=== PATIENT | male | born 1960 | race Caucasian/White ===

== ENCOUNTER → 2016-04-06 | Outpatient (CLI) | payer OTHER ==
--- NOTE | 2016-04-06 14:55 | DIAGNOSTIC IMAGING REPORT ---
TWO VIEW CHEST CLINICAL HISTORY: Benign prostatic hyperplasia. FINDINGS: PA and lateral chest radiographs are obtained. No prior studies are available for comparison at the time of dictation. The heart is mildly enlarged and there is atherosclerotic calcification of the thoracic aorta. The pulmonary vasculature is noncongested. Enlargement of the central pulmonary arteries suggests pulmonary artery hypertension. Findings suggest emphysema. Chronic appearing interstitial thickening is noted. 11 mm nodular density projects over the left mid chest. There is no airspace consolidation or pleural effusion. A calcified granuloma seen in the left lower lobe. There is no pneumothorax. The skeletal structures are osteopenic. There are healed bilateral rib fractures. Degenerative change is noted throughout the thoracic spine. IMPRESSION: 1. Cardiomegaly and suspect emphysema. There is no acute cardiopulmonary abnormality. 2. An 11 mm nodular density projects over the left mid chest. This is indeterminant, and a chest CT scan is recommended for further assessment and to exclude underlying pulmonary lesion. Electronically signed by: Serafin Corea M.D. 04/06/2016 2:54 PM Dictated Date/Time: 04/06/2016 2:51 PM
[2016-04-06 15:47] LABS: BASO % 0.4 %; BASO ABS # 0.04 K/uL (0-0.2); COMPLETE YES; EOS % 1.4 %; HEMATOCRIT 50.8 % (42-52); IG% 0.2 %; LYMPH % 25.9 %; LYMPH ABS # 2.39 K/uL (1.2-3.4); MEAN CELL VOLUME 91.5 fL (80-100); MEAN CORPUSCULAR HEMOGLOBIN 32.3 pg (25-34); MEAN CORPUSCULAR HGB CONC 35.2 g/dl (32-36); MONO % 10.6 %; NEUT % 61.5 %; PLATELET COUNT 189 K/uL (130-400); RED BLOOD COUNT 5.55 M/uL (4.7-6.1); WHITE BLOOD COUNT 9.23 K/uL (4.8-10.8)
[2016-04-06 15:52] LABS: PROTHROMBIN TIME (PATIENT) 10.7 SECONDS (9.0-12.0)
[2016-04-06 17:42] LABS: ALKALINE PHOSPHATASE 61 U/L (45-117); ALT/SGPT 223 U/L (12-78); BLOOD UREA NITROGEN 24 mg/dl (7-18); BUN/CREATININE RATIO 18.6 (10-20); CALCIUM 8.5 mg/dl (8.5-10.1); CARBON DIOXIDE 23 mmol/L (21-32); CHLORIDE 99 mmol/L (98-107); GLUCOSE 179 mg/dl (70-99); POTASSIUM 3.9 mmol/L (3.5-5.1); SODIUM 133 mmol/L (136-145); URIC ACID 5.1 mg/dl (2.6-7.2)
[2016-04-06 17:53] LABS: AST/SGOT 114 U/L (15-37)
--- NOTE | 2016-04-10 11:51 | CODING QUERY MEDICAL NECESSITY ---
SUPPORTING DIAGNOSIS NEEDED A supporting diagnosis is required for the test/procedure performed on this patient in order for us to be reimbursed by the patient's insurance. Please provide a supporting diagnosis for the following test/procedure listed below next to the test name along with your signature. *If there is no additional diagnosis for this patient that would support the following test/procedure please document that below next to the test/procedure. Test(s)/Procedure(s) that require a supporting diagnosis: DOS 04/06 * Toxicology Profile DIAGNOSIS: Provider Signature: Date: Thank you Daniella Arnold Health Information Management Once completed, please kindly fax back to [phone] For questions please call [phone]
[2016-04-10 18:58] LABS: ANTI-CENTROMERE AB <1.0 NEG AI (<1.0 NEG); ANTI-SS-A <1.0 NEG AI (<1.0 NEG); ANTI-SS-B <1.0 NEG AI (<1.0 NEG); DNA ds CRITHIDIA NEGATIVE (NEGATIVE); LIVER FIBR APOLIPOPROTEIN A-1 157 mg/dL (94-176); LIVER FIBROS ALPHA-2-MACROGLOB 378 mg/dL (106-279); LIVER FIBROSIS GGT 76 U/L (3-85); MICROSOMAL AB <1 IU/ML (<9); NECROINFLAMMATION ACT GRADE A3; NECROINFLAMMATION ACT SCORE 0.84; Sm Antibody <1.0 NEG AI (<1.0 NEG); URCREATININE 71.3 MG/DL (>/= 20)
[2016-04-13 13:09] LABS: ANA TITER 1:40 TITER (<1:40)
== END | disposition home or self-care (01) ==
LOC: C.LAB1850 13:56
PROVIDERS: ATTEND Internal Medicine Infectious Disease
DX: N40.1 Benign prostatic hyperplasia with lower urinary tract symptoms (principal); R33.9 Retention of urine, unspecified; R35.1 Nocturia; R91.1 Solitary pulmonary nodule; B18.2 Chronic viral hepatitis C; I51.7 Cardiomegaly